=== PATIENT | male | born 1995 | race Caucasian/White ===

== ENCOUNTER 2017-04-04 04:50 | Emergency (ER) | payer OTHER ==
[~2017-04-04] VITALS: Ht 172.7 cm; Wt 106.5 kg
[~2017-04-04 04:50] MED LIST: VENTOLIN
[2017-04-04 04:57] VITALS: Ht 172.7 cm; Wt 106.5 kg
[2017-04-04] MEDS ORDERED: CIPR7.5D4 LEFT EAR (05:35)
[2017-04-04] MEDS ORDERED: NAPR-260 PO (05:35)
--- NOTE | 2017-04-04 05:52 | ERD ---
ER Documentation Chief Complaint Date/Time DATE: 04/04/17 TIME: 05:46 Chief Complaint left earache x 3 days HPI 21-year-old male presents the emergency department complaining of left-sided ear pain and fullness 3 days. Patient denies any recent illness, runny nose, congestion, cough, fever or chills. Patient reports a current constant 9 out of 10 throbbing pain localized to the left ear worse with pressure. He is attempted to treat his symptoms with Motrin with only mild relief. He is up-to- date with vaccinations. ROS All systems reviewed and are negative except as per history of present illness. Medications Home Meds Active Scripts Ciprofloxacin Hcl/Dexameth (Ciprodex Otic Suspension) 7.5 Ml Drops.susp, 4 DROP LEFT EAR BID, #1 BOTTLE Prov:SHREYA DRIVER PA-C 04/04/17 Naproxen* (Naprosyn*) 500 Mg Tablet, 500 MG PO BID Y for PAIN AND/OR INFLAMMATION, #30 TAB Prov:SHREYA DRIVER PA-C 04/04/17 Reported Medications [Ventolin] No Conflict Check 12/17/12 [None] No Conflict Check 03/22/11 Allergies Allergies: Coded Allergies: amoxicillin (Verified Allergy, Mild, RASH, 04/04/17) PMhx/Soc Medical and Surgical Hx: pt denies Surgical Hx History of Surgery: No Anesthesia Reaction: No Hx Neurological Disorder: No Hx Respiratory Disorders: Yes (asthma) Hx Cardiac Disorders: No Hx Psychiatric Problems: No Hx Miscellaneous Medical Probl: No Hx Alcohol Use: No Hx Substance Use: No Hx Tobacco Use: No Smoking Status: Never smoker Physical Exam Vitals Vital Signs Date Time Temp Pulse Resp B/P Pulse Ox O2 Delivery O2 Flow Rate FiO2 04/04/17 04:57 98.1 76 20 129/76 98 Physical Exam Const: Developed, well-nourished, no acute distress Head: Atraumatic Eyes: Normal Conjunctiva ENT: 1.5 cm cyst located at the opening of the ear canal with mild erythema. Tympanic membrane visualized, nonerythematous, nonbulging. No swelling or discharge from the rest of the ear canal. Normal External Ears, Nose and Mouth. Neck: Full range of motion..~ No meningismus. Resp: Clear to auscultation bilaterally Cardio: Regular rate and rhythm, no murmurs Abd: Soft, non tender, non distended. Normal bowel sounds Skin: No petechiae or rashes Back: No midline or flank tenderness Ext: No cyanosis, or edema Neur: Awake and alert Psych: Normal Mood and Affect Results 24 hrs Current Medications Medications (Trade) Dose Ordered Sig/Abdirahman Route PRN Reason Start Time Stop Time Status Last Admin Dose Admin Ibuprofen (Motrin) 600 mg ONCE ONCE PO 04/04/17 06:00 04/04/17 06:01 04/04/17 05:44 Procedures/MDM 21-year-old otherwise healthy male presents the emergency department complaining of left ear pain and fullness 3 days. Patient denies any history of upper respiratory symptoms including congestion, cough, fever, or chills. Clinical exam consistent with simple superficial cyst of the skin at the opening of the left ear canal Abscess Incision and Drainage with irrigation by me: Location: Left ear canal Anesthesia: Local 1% Lidocaine Technique: Small incision made with 11 blade, purulent discharge drained from cyst Packing: None Complications: None 48 hour wound check. Patient's skin symptoms have stabilized while they have been evaluated in the department and are appropriate for outpatient care and work up. Exam and w/u not consistent w/ sepsis, deep space infection, or foreign body. No evidence of acute otitis media at this time. She provided with topical antibiotic drops, anti-inflammatory pain medication and given return precautions. Based on patient's history of present illness and physical examination the decision was made to discharge. The patient was re-evaluated after ED treatment and stabilizing measures, and symptoms have improved. There is no evidence of life threatening injuries or illnesses at this time. On re-examination, patient resting in no distress, stable vital signs, reports feeling better and safe for discharge with outpatient follow up with PMD in 1-2 days. Patient given return precautions. Departure Diagnosis: Primary Impression: Ear swelling Laterality: left Qualified Code: H93.8X2 - Ear swelling, left Additional Impressions: Cyst Ear pain Laterality: left Qualified Code: H92.02 - Ear pain, left Condition: Good Patient Instructions: Sebaceous Cyst, Infected (I And D) Additional Instructions: Call your primary care doctor TOMORROW for an appointment during the next 1-2 days.See the doctor sooner or return here if your condition worsens before your appointment time. SHREYA DRIVER PA-C Apr 04, 2017 05:52
[2017-04-04] MEDS ORDERED: IBUPROFEN 600 MG TAB PO ONE (06:00)
== END 2017-04-04 05:55 | disposition home or self-care (01) ==
LOC: FTE 04:50
DX: H93.8X2 Other specified disorders of left ear (principal); J45.909 Unspecified asthma, uncomplicated